=== PATIENT | male | born 1970 | race American Indian/Alaskan Native ===

== ENCOUNTER 2018-07-22 17:10 | Emergency (ER) | payer OTHER ==
[2018-07-22] MEDS ORDERED: Sodium Chloride 0.9% 1,000 ML IV ONE (17:18)
[2018-07-22] MEDS ORDERED: HYDROmorphone 1 MG/ML Syringe IVPUSH ONE ×2 (17:20→19:36)
[2018-07-22] MEDS ORDERED: Ondansetron 4 MG/2 ML SDV IVPUSH ONE (17:20)
--- NOTE | 2018-07-22 17:23 | EDM.PDOC ---
ED HPI GENERAL MEDICAL PROBLEM - General Stated Complaint: [facility] Time Seen by Provider: 07/22/18 17:10 Source of Information: Reports: Patient, EMS History Limitations: Reports: No Limitations - History of Present Illness INITIAL COMMENTS - FREE TEXT/NARRATIVE: The patient states that an 1800 pound scraper fell onto him just before 15:00 this afternoon (about 15 minutes ago), while at work. Coworkers were able to get the weight off the patient after about 30 seconds. He presents with pain to his left hip, his low back, and lower abdomen. EMS gave the patient a total of 100 g of fentanyl, which reduced his pain from a "10" to a 8". The patient's PCP is Dr. Chau Michael. Left Hip Pain Score (Numeric/FACES): 8 - Related Data Allergies Allergy/AdvReac Type Severity Reaction Status Date / Time No Known Allergies Allergy Verified 03/17/16 12:57 Home Meds: Home Meds Ciprofloxacin [IJD: Ciloxan 0.3% Ophth Soln] 1 drop EYERT .EVERY 4 HOURS #5 ml 03/17/16 [Rx] Past Medical History Respiratory History: Reports: Sleep Apnea (possible, not tested) Musculoskeletal History: Reports: Fracture (Right leg. Left ankle.) Neurological History: Reports: Concussion Endocrine/Metabolic History: Reports: Obesity/BMI 30+ - Past Surgical History Musculoskeletal Surgical History: Reports: ORIF (Right leg. 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 ED EXAM, GENERAL - Physical Exam Exam: See Below Exam Limited By: No Limitations General Appearance: Alert, WD/WN, No Apparent Distress Eye Exam: Bilateral Eye: EOMI, Normal Inspection Ears: Normal External Exam, Hearing Grossly Normal Nose: Normal Inspection Throat/Mouth: Normal Inspection, Normal Lips, Normal Voice, No Airway Compromise Head: Atraumatic, Normocephalic Neck: Normal Inspection, Full Range of Motion Respiratory/Chest: No Respiratory Distress, Lungs Clear, Normal Breath Sounds, No Accessory Muscle Use, Chest Non-Tender Cardiovascular: Normal Peripheral Pulses, Regular Rate, Rhythm, No Edema, No Gallop, No JVD, No Murmur, No Rub Peripheral Pulses: 4+: Radial (L), Radial (R) GI/Abdominal: Normal Bowel Sounds, Soft, No Organomegaly, No Distention, No Abnormal Bruit, No Mass, Tender (Mild, left lower quadrant only. Nontender elsewhere.), Other (Obese) (Male) Exam: Deferred Rectal (Males) Exam: Deferred Extremities: No Pedal Edema, Normal Capillary Refill, Other (The patient is keeping his left hip flexed at approximately 45. Pain is induced and the left hip with mild internal and external rotation of the left lower extremity, and the left hip is tender to palpation. No visible abnormality to the area, such as swelling, erythema, ecchymosis, or abrasion. No laxity or crepitus, and no pain induced with compression of the pelvis. Neurovascular status of the left lower extremity is intact.) Neurological: Alert, Oriented, Normal Cognition, No Motor/Sensory Deficits Psychiatric: Normal Affect Skin Exam: Warm, Dry, Intact, Normal Color, No Rash Course - Vital Signs Last Recorded V/S: Last Vital Signs Temp 37.1 C 07/22/18 17:32 Pulse 88 07/22/18 17:32 Resp 18 07/22/18 17:32 BP 110/89 07/22/18 17:32 Pulse Ox 98 07/22/18 17:32 - Orders/Labs/Meds Orders: Active Orders 24 hr Category Date Time Status Chest 1V Frontal [CR] Stat Exams 07/22/18 17:18 Taken UA W/MICROSCOPIC [URIN] Stat Lab 07/22/18 17:18 Ordered Sodium Chloride 0.9% [Normal Saline] 1,000 ml Med 07/22/18 17:18 Active IV ONETIME Sodium Chloride 0.9% [Saline Flush] Med 07/22/18 17:49 Active 10 ml FLUSH ONETIME PRN Medication Orders Sodium Chloride (Normal Saline) 1,000 mls @ 100 mls/hr IV ONETIME ONE Stop: 07/23/18 03:17 Last Admin: 07/22/18 17:21 Dose: 100 mls/hr Sodium Chloride (Saline Flush) 10 ml FLUSH ONETIME PRN PRN Reason: KEEP VEIN OPEN Last Admin: 07/22/18 18:03 Dose: 10 ml Labs: Laboratory Tests 07/22/18 07/22/18 07/22/18 Range/Units 17:21 17:21 17:21 WBC 7.14 (4.23-9.07) K/mm3 RBC 5.38 (4.63-6.08) M/mm3 Hgb 15.9 (13.7-17.5) gm/L Hct 45.0 (40.1-51.0) % MCV 83.6 (79.0-92.2) fl MCH 29.6 (25.7-32.2) pg MCHC 35.3 (32.2-35.5) g/dl RDW Std Deviation 39.7 (35.1-43.9) fL Plt Count 369 H (163-337) K/mm3 MPV 9.3 L (9.4-12.3) fl Neutrophils % (Manual) 74 H (40-60) % Band Neutrophils % 0 (0-10) % Lymphocytes % (Manual) 24 (20-40) % Atypical Lymphs % 0 % Monocytes % (Manual) 2 (2-10) % Eosinophils % (Manual) 0 L (0.8-7.0) % Basophils % (Manual) 0 L (0.2-1.2) Platelet Estimate Adequate RBC Morph Comment Normal PT 10.9 (9.5-12.1) SECONDS INR 1.00 APTT 26 (24-31) SECONDS Sodium 141 (136-145) mEq/L Potassium 3.5 (3.5-5.1) mEq/L Chloride 104 (98-107) mEq/L Carbon Dioxide 24 (21-32) mEq/L Anion Gap 16.5 H (5-15) BUN 13 (7-18) mg/dL Creatinine 1.0 (0.7-1.3) mg/dL Est Cr Clr Drug Dosing 98.08 mL/min Estimated GFR (MDRD) > 60 (>60) mL/min BUN/Creatinine Ratio 13.0 L (14-18) Glucose 104 (74-106) mg/dL Calcium 9.0 (8.5-10.1) mg/dL Total Bilirubin 0.6 (0.2-1.0) mg/dL AST 18 (15-37) U/L ALT 42 (16-63) U/L Alkaline Phosphatase 55 (46-116) U/L Total Protein 7.5 (6.4-8.2) g/dl Albumin 4.1 (3.4-5.0) g/dl Globulin 3.4 gm/dL Albumin/Globulin Ratio 1.2 (1-2) Meds: Medications Generic Name Dose Route Start Last Admin Trade Name Freq PRN Reason Stop Dose Admin Sodium Chloride 1,000 mls @ 100 mls/hr 07/22/18 17:18 07/22/18 17:21 Normal Saline IV 07/23/18 03:17 100 mls/hr ONETIME ONE Administration Sodium Chloride 10 ml 07/22/18 17:49 07/22/18 18:03 Saline Flush FLUSH 10 ml ONETIME PRN Administration KEEP VEIN OPEN Discontinued Medications Generic Name Dose Route Start Last Admin Trade Name Freq PRN Reason Stop Dose Admin Hydromorphone HCl 1 mg 07/22/18 17:20 07/22/18 17:37 Dilaudid IVPUSH 07/22/18 17:21 1 mg ONETIME ONE Administration Hydromorphone HCl 1 mg 07/22/18 19:36 07/22/18 19:40 Dilaudid IVPUSH 07/22/18 19:37 1 mg ONETIME ONE Administration Iohexol 100 ml 07/22/18 17:40 07/22/18 18:03 Omnipaque-300 IVPUSH 07/22/18 17:41 100 ml ONETIME ONE Administration Ondansetron HCl 4 mg 07/22/18 17:20 07/22/18 17:37 Zofran IVPUSH 07/22/18 17:21 4 mg ONETIME ONE Administration - Re-Assessments/Exams Free Text/Narrative Re-Assessment/Exam: 07/22/18 18:16 Portable chest radiograph appears to be grossly normal. The cardiac silhouette is within normal limits. No pulmonary vascular congestion. No pleural effusions. No focal infiltrate. No pneumothorax. A single subcentimeter left midlung granuloma versus end-on vessel incidentally noted. Formal read per the Radiologist pending. 07/22/18 19:10 CT of the abdomen and pelvis with IV contrast is read by Dr. Becker as: 1. Fracture which is slightly comminuted with small displaced fragment being seen within the inferior and superior pubic ramus on the left side at the pubic symphysis. Soft tissue hematoma is noted around this displaced fragment. 2. Other incidental findings as noted above. No other acute abnormality is appreciated. 07/22/18 19:41 Test results discussed with the patient and his family. Patient will require transfer to [facility], since we do not have an orthopedic surgeon available at this facility at this time. I'm aware that [facility] is , therefore the patient will need to go to [facility]. Both the portable chest x-ray and CT images were pushed to [facility] at 19:17. Case discussed with Pancho at [facility] at 19:20. Case then discussed with Dr. Mandujano, Orthopedic Surgeon telecom sales consultant, at 19:27. Due to some technical difficulties, he is unable to see the CT images, therefore cannot ascertain whether or not the pubic symphysis is intact. If it is, then the fracture is stable and nothing needs be done. If it is not, the patient will need to be transferred to [facility]. He is willing to evaluate the patient, however, he feels that this is a trauma case, therefore the patient needs to be admitted to the Trauma Surgeon. Case then discussed with Dr. Chris Loving, Trauma Surgeon telecom sales consultant, at 19: 31. Dr. Mandujano voiced his concerns about not being able to see the CT images, however, if the patient's pubic symphysis is torn, he would not require surgery for several days, therefore Dr. Loving agreed to accept the patient to transfer to their ED. In the meantime, we will work on trying to get the images pushed to [facility]. We will also make a CD-ROM of the images to accompany the patient. Because this is a trauma patient, the patient will need to go to their ED. Case then discussed with Dr. Archer, ED Physician at [facility], at 19 :35. He accepted the patient for transfer to their ED. Departure - Departure Time of Disposition: 19:50 Disposition: DC/Tfer to Acute Hospital 02 Condition: Fair Clinical Impression: Closed fracture of left side of symphysis pubis - Discharge Information *PRESCRIPTION DRUG MONITORING PROGRAM REVIEWED*: Not Applicable *COPY OF PRESCRIPTION DRUG MONITORING REPORT IN PATIENT RU: Not Applicable Referrals: Chau Michael Jr, MD [Primary Care Provider] - - My Orders Last 24 Hours: My Active Orders 07/22/18 17:18 Chest 1V Frontal [CR] Stat UA W/MICROSCOPIC [URIN] Stat Sodium Chloride 0.9% [Normal Saline] 1,000 ml IV ONETIME 07/22/18 17:49 Sodium Chloride 0.9% [Saline Flush] 10 ml FLUSH ONETIME PRN - Assessment/Plan Last 24 Hours: My Active Orders 07/22/18 17:18 Chest 1V Frontal [CR] Stat UA W/MICROSCOPIC [URIN] Stat Sodium Chloride 0.9% [Normal Saline] 1,000 ml IV ONETIME 07/22/18 17:49 Sodium Chloride 0.9% [Saline Flush] 10 ml FLUSH ONETIME PRN
[2018-07-22 17:37] VITALS: BP 110/89
[2018-07-22] MEDS ORDERED: Iohexol 647 MG/ML 100 ML Bottle IVPUSH ONE (17:40)
[2018-07-22] MEDS ORDERED: Sodium Chloride 0.9% 10 ML Syringe FLUSH PRN (17:49)
--- NOTE | 2018-07-22 18:59 | CT ---
CT abdomen and pelvis Technique: Multiple axial sections were obtained from above the dome of the diaphragm inferiorly through the pubic symphysis. Intravenous contrast was utilized. No oral contrast has been given. Findings: Small portion of the visualized lung bases are clear. Liver shows 2 small cysts. Slight hyperenhancing area is also noted within the right lobe of the liver believed to be incidental. Nothing acute is seen within the liver. Spleen appears within normal limits. Adrenal glands show no nodule. Pancreas is within normal limits. Gallbladder contains no calcified gallstones. Kidneys show symmetric contrast enhancement. Small low density finding is seen within the left kidney which is too small to characterize by Hounsfield unit measurements measuring 1.0 cm but most likely due to small cyst. Aorta shows no aneurysm. No retroperitoneal adenopathy is seen. No mesenteric abnormalities are seen. No pelvic mass or adenopathy is identified. Slightly comminuted fracture identified within the superior and inferior left pubic ramus at the pubic symphysis. Small displaced bony fragment is seen within the soft tissues with adjacent soft tissue hematoma which is lateral to the left pubic symphysis. No additional pelvic fracture is seen. No prevertebral compression deformities are seen within the lumbar spine. Minimal fragmentation is noted within the left apophyseal joint at L4-5 which is believed to be normal variant. Impression: 1. Fracture which is slightly comminuted with small displaced fragment being seen within the inferior and superior pubic ramus on the left side at the pubic symphysis. Soft tissue hematoma is noted around this displaced fragment. 2. Other incidental findings as noted above. No other acute abnormality is appreciated. Diagnostic code #3
--- NOTE | 2018-07-23 07:12 | CR ---
Chest: Portable view of the chest was obtained. Comparison: No prior chest x-ray. Heart size and mediastinum are normal. Lungs are clear with no acute parenchymal change. Bony structures are grossly intact. Impression: 1. Nothing acute is appreciated on portable chest x-ray. Diagnostic code #1
== END 2018-07-22 20:08 ==
LOC: JD.ED 17:10
DX: S32.592A Other specified fracture of left pubis, initial encounter for closed fracture (principal); F17.220 Nicotine dependence, chewing tobacco, uncomplicated; W20.8XXA Other cause of strike by thrown, projected or falling object, initial encounter
CPT/HCPCS: 36415; 71045; 74177; 80053; 85007; 85027; 85610; 85730; 96361; 96374; 96375; 96376; 99285; J1170; J2405; J7040; Q9967